=== PATIENT | male | born 1955 | race African-American/Black ===

== ENCOUNTER 2020-09-11 10:28 | Emergency (ER) | payer MEDICAID ==
[~2020-09-11] VITALS: Ht 182.9 cm; Wt 93.0 kg
[2020-09-11] MEDS ORDERED: KETOROLAC 30MG/ML VIAL IV STA (10:52)
[2020-09-11 11:24] VITALS: BP 133/90
[2020-09-11 11:37] LABS: CLARITY URINE CLEAR (CLEAR); COLOR URINE YELLOW (YELLOW); KETONES URINE NEGATIVE (NEGATIVE); LEUKOCYTE ESTERASE URINE NEGATIVE (NEGATIVE); NITRITE URINE NEGATIVE (NEGATIVE); OCCULT BLOOD URINE NEGATIVE (NEGATIVE); PROTEIN URINE NEGATIVE (NEGATIVE); SPECIFIC GRAVITY URINE 1.008 (1.005-1.030); UROBILINOGEN URINE 0.2 E.U./dL (0.2-1.0)
[2020-09-11 11:53] LABS: BASOPHILS % 0.7 % (0.0-2.0); EOSINOPHILS % 3.8 % (0.0-5.0); HEMATOCRIT. 41.3 % (42.0-52.0); HEMOGLOBIN. 14.1 g/dL (14.0-18.0); LYMPHOCYTES % 28.1 % (20.0-50.0); MEAN CORPUSCULAR HEMOGLOBIN 32.5 pg (28.0-32.0); MONOCYTES % 8.6 % (2.0-8.0); NEUTROPHILS % 58.8 % (40.0-76.0); RED BLOOD CELL COUNT 4.35 mill/uL (4.7-6.1); RED CELL DISTRIBUTION WIDTH 13.3 % (11.6-14.6)
[2020-09-11 11:54] LABS: CHLORIDE 107 mEq/L (98-107)
[2020-09-11 11:58] LABS: INR 1.1; PROTHROMBIN TIME 11.4 sec (9.6-11.0)
[2020-09-11 14:12] LABS: PLATELET 213 x1000/uL (130-400)
== END 2020-09-11 13:37 | disposition home or self-care (01) ==
LOC: ER 10:40
DX: N45.2 Orchitis (principal); I86.1 Scrotal varices; M19.90 Unspecified osteoarthritis, unspecified site; Z98.890 Other specified postprocedural states
CPT/HCPCS: 36415; 76870; 80053; 81003; 83690; 85025; 85610; 87086; 93005; 93976; 96374; 99285; J1885

== ENCOUNTER 2020-10-03 10:39 | Emergency (ER) | payer MEDICAID ==
[~2020-10-03] VITALS: Ht 182.9 cm; Wt 84.0 kg
[2020-10-03 10:59] VITALS: BP 118/79
[2020-10-03] MEDS ORDERED: MORPHINE SULFATE 4 MG/ML CPJ (NOT FOR IM USE) IV STA (11:03)
[2020-10-03 11:34] LABS: BASOPHILS % 0.8 % (0.0-2.0); EOSINOPHILS % 2.3 % (0.0-5.0); HEMATOCRIT. 43.1 % (42.0-52.0); HEMOGLOBIN. 14.6 g/dL (14.0-18.0); LYMPHOCYTES % 24.6 % (20.0-50.0); MEAN CORPUSCULAR HEMOGLOBIN 32.7 pg (28.0-32.0); MEAN CORPUSCULAR VOLUME 96.1 fL (80.0-94.0); MEAN PLATELET VOLUME 7.5 fl (7.4-10.4); MONOCYTES % 10.5 % (2.0-8.0); NEUTROPHILS % 61.8 % (40.0-76.0); PLATELET 224 x1000/uL (130-400); RED BLOOD CELL COUNT 4.48 mill/uL (4.7-6.1); RED CELL DISTRIBUTION WIDTH 13.1 % (11.6-14.6)
[2020-10-03 11:40] LABS: CLARITY URINE CLEAR (CLEAR); COLOR URINE YELLOW (YELLOW); INR 0.9; KETONES URINE NEGATIVE (NEGATIVE); LEUKOCYTE ESTERASE URINE NEGATIVE (NEGATIVE); NITRITE URINE NEGATIVE (NEGATIVE); OCCULT BLOOD URINE NEGATIVE (NEGATIVE); PH URINE 6.5 (4.5-8.0); PROTEIN URINE NEGATIVE (NEGATIVE); SPECIFIC GRAVITY URINE 1.017 (1.005-1.030)
[2020-10-03 12:00] LABS: CHLORIDE 104 mEq/L (98-107)
== END 2020-10-03 12:22 | disposition home or self-care (01) ==
LOC: ER 10:39
DX: K40.90 Unilateral inguinal hernia, without obstruction or gangrene, not specified as recurrent (principal); M19.90 Unspecified osteoarthritis, unspecified site; Z98.890 Other specified postprocedural states
CPT/HCPCS: 36415; 74176; 80053; 81003; 83690; 85025; 85610; 93005; 96374; 99285; J2270